=== PATIENT | male | born 1995 | race Caucasian/White ===

== ENCOUNTER 2017-02-27 14:35 | Outpatient (CLI) | payer MEDICAID | END 2017-02-27 14:36 | disposition home or self-care (01) | DX: M54.9 Dorsalgia, unspecified (principal) ==

== ENCOUNTER 2017-06-15 14:25 | Outpatient (CLI) | payer MEDICAID | END 2017-06-15 14:26 | disposition home or self-care (01) | LOC: LAB.R 14:25 | PROVIDERS: ATTEND Physician Assistant | DX: R10.30 Lower abdominal pain, unspecified (principal) | CPT/HCPCS: 87491; 87591 ==